=== PATIENT | male | born 1960 | race Caucasian/White ===

== ENCOUNTER 2017-02-26 05:29 | Day surgery (SDC) | payer OTHER ==
[~2017-02-26] VITALS: Ht 182.9 cm; Wt 93.4 kg
[~2017-02-26 05:29] MED LIST: FLONASE ALLERG9.9 ML BOTH NARES; LO-DOSE ASPIRIN81 M2 PO; METAMUCIL0.4 GM PO
[2017-02-26 05:55] VITALS: BP 177/102
[2017-02-26 06:06] VITALS: BP 153/100
[2017-02-26 11:20] VITALS: BP 144/104
[2017-02-26 11:51] VITALS: BP 155/93
[2017-02-26 12:20] VITALS: BP 165/95
[2017-02-26 12:57] VITALS: BP 159/93
== END 2017-02-26 13:12 | disposition home or self-care (01) ==
LOC: SDC 05:29
DX: J34.2 Deviated nasal septum (principal); J31.0 Chronic rhinitis; R06.83 Snoring
CPT/HCPCS: J0690; J1170; J2250; J2405; J2710; J3010; J3301; J7050